=== PATIENT | female | born 1980 | race Caucasian/White ===

== ENCOUNTER 2017-10-11 19:50 | Outpatient (CLI) | payer OTHER ==
[~2017-10-11] VITALS: Ht 170.2 cm; Wt 97.0 kg
[~2017-10-11 19:50] MED LIST: LEVO100T35 PO
[2017-10-11 20:40] VITALS: Ht 170.2 cm; Wt 97.0 kg
== END 2017-10-11 20:58 | disposition home or self-care (01) ==
LOC: C.LD 19:50 → C.OPB 19:50
PROVIDERS: ATTEND Obstetrics & Gynecology
DX: O36.8190 Decreased fetal movements, unspecified trimester, not applicable or unspecified (principal); Z3A.00 Weeks of gestation of pregnancy not specified

== ENCOUNTER 2017-12-02 05:17 | Inpatient (IN) | payer OTHER ==
--- NOTE | 2017-11-25 12:58 | PAT Medication Instructions ---
Service Date Nov 25, 2017. Current Home Medication List Albuterol Sulfate (Proair Respiclick), 2 PUFF INH Q4 PRN for SOB/Wheezing Ferrous Sulfate (Iron), 1 TAB PO BID Levothyroxine Sodium (Levothyroxine Sodium), 1 TAB PO QAM Multivit/Min/Iron/Fol Ac/Pren ( Vitamin), 1 TAB PO QAM Medication Instructions For Your Scheduled Surgery - Hold the following medications the morning of surgery: Multivit/Min/Iron/Fol Ac/Pren ( Vitamin), 1 TAB PO QAM Ferrous Sulfate (Iron), 1 TAB PO BID - Take the following medications the morning of surgery with a sip of water: Albuterol Sulfate (Proair Respiclick), 2 PUFF INH Q4 PRN for SOB/Wheezing (IF NEEDED, AND BRING IT WITH YOU TO THE HOSPITAL) Levothyroxine Sodium (Levothyroxine Sodium), 1 TAB PO QAM - Take the following medications as scheduled the night before surgery: Ferrous Sulfate (Iron), 1 TAB PO BID If you have any questions please call us at [phone] or [phone] or [phone]
[2017-11-25 15:12] LABS: BASO % 0.1 %; BASO ABS # 0.01 K/uL (0-0.2); EOS % 0.8 %; EOS ABS # 0.07 K/uL (0-0.5); HEMATOCRIT 34.8 % (37-47); HEMOGLOBIN 11.8 g/dL (12.0-16.0); IG# 0.04 K/uL (0.00-0.02); LYMPH % 20.7 %; LYMPH ABS # 1.73 K/uL (1.2-3.4); MEAN CELL VOLUME 95.6 fL (80-100); MEAN CORPUSCULAR HEMOGLOBIN 32.4 pg (25-34); MEAN CORPUSCULAR HGB CONC 33.9 g/dl (32-36); MEAN PLATELET VOLUME 10.2 fL (7.4-10.4); MONO % 5.5 %; MONO ABS # 0.46 K/uL (0.11-0.59); NEUT % 72.4 %; NEUT ABS # 6.05 K/uL (1.4-6.5); PLATELET COUNT 236 K/uL (130-400); RED CELL DISTRIBUTION WIDTH SD 49.3 fL (36.4-46.3); WHITE BLOOD COUNT 8.36 K/uL (4.8-10.8)
[2017-12-02] VITALS (15 sets, daily range): BP systolic 99–109; BP diastolic 58–65; PULSE 62–73; TEMP 36.4; O2SAT 99–100; Ht 170.2 cm; Wt 101.0 kg
[~2017-12-02] VITALS: Ht 170.2 cm; Wt 101.0 kg
[~2017-12-02 05:17] MED LIST changes: +ALBU18002 INH; +FERR1TAB61 PO; -LEVO100T35 PO; +LEVO50TA6 PO; +PRENTAB26 PO
[2017-12-02] MEDS: LACTATED RINGER'S 1000ML 1,000 ML IV SCH ×2 (05:45→06:38)
[2017-12-02 05:51] LABS: BASO % 0.4 %; BASO ABS # 0.03 K/uL (0-0.2); EOS % 1.4 %; EOS ABS # 0.11 K/uL (0-0.5); HEMATOCRIT 34.8 % (37-47); IG# 0.04 K/uL (0.00-0.02); LYMPH % 24.9 %; LYMPH ABS # 1.98 K/uL (1.2-3.4); MEAN CELL VOLUME 94.6 fL (80-100); MEAN CORPUSCULAR HEMOGLOBIN 32.6 pg (25-34); MONO % 6.5 %; MONO ABS # 0.52 K/uL (0.11-0.59); NEUT % 66.3 %; NEUT ABS # 5.26 K/uL (1.4-6.5); PLATELET COUNT 222 K/uL (130-400); RED CELL DISTRIBUTION WIDTH CV 14.1 % (11.5-14.5); RED CELL DISTRIBUTION WIDTH SD 48.2 fL (36.4-46.3); WHITE BLOOD COUNT 7.94 K/uL (4.8-10.8)
[2017-12-02 05:53] LABS: MEAN CORPUSCULAR HGB CONC 34.5 g/dl (32-36)
[2017-12-02] MEDS ORDERED: CEFOXITIN IV 2,000 MG in DEXTROSE 5% 50ML 50 ML IV SCH (06:00)
[2017-12-02] MEDS ORDERED: CITRIC ACID/SODIUM CITRATE 15 ML UDC PO SCH (06:00)
[2017-12-02] MEDS ORDERED: PHENYLEPHRINE HCL INJ 10 MG/ML VIAL ONE (06:51)
[2017-12-02] MEDS ORDERED: OXYTOCIN INJ 10 UNITS/ML VIAL ONE ×2 (06:51→07:31)
[2017-12-02] MEDS ORDERED: MoRPHine SULFATE PF 1 MG/ML 10 ML AMP/VIAL ONE (06:52)
--- NOTE | 2017-12-02 07:03 | History & Physical Bridge Note ---
H&P Re-Evaluation Bridge Note: I have examined the patient, reviewed the History & Physical and in the interval since the performance of the History & Physical I have noted the following changes of clinical significance: No changes noted
[2017-12-02] MEDS ORDERED: FENTANYL CITRATE INJ 50 MCG/1 ML 2 ML VIAL ONE (07:26)
[2017-12-02] MEDS ORDERED: ONDANSETRON INJ 2 MG/ML 2 ML VIAL ONE (08:17)
[2017-12-02] MEDS ORDERED: LACTATED RINGER'S 1000ML 1,000 ML IV SCH (08:46)
--- NOTE | 2017-12-02 08:50 | [facility] Post Operative Brief Note ---
Immediate Operative Summary Operative Date Dec 02, 2017. Pre-Operative Diagnosis Term with history of prior Caesarean Section, requesting permanent sterilization Post-Operative Diagnosis same Procedure(s) Performed Repeat Section; Delivery of a live female child at 0803 Bilateral Tub[address] L[address] Surgeon [address] Wagner Product Development Chemist Surgeon(s) Dr. aPlmer Estimated Blood Loss 500cc Findings Consistent with Post-Op Diagnosis Fluids (cc crystalloids) 1100 Specimens Cord Blood Placenta-Exam Portion of right and left Fallopian tube Drains Akins to gravity Anesthesia Type Spinal Complication(s) none Disposition Accompanied Pt To Recover: yes Disposition: L&D
[2017-12-02] MEDS ORDERED: SODIUM CHLORIDE 0.9% 1000ML 1,000 ML IV PRN (08:59)
[2017-12-02] MEDS ORDERED: NALOXONE HCL INJ 1 MG in SODIUM CHLORIDE 0.9% 1000ML 1,000 ML IV PRN (08:59)
[2017-12-02] MEDS ORDERED: NALOXONE HCL INJ 0.08 MG in SYRINGE 1.8 ML IV PRN (08:59)
[2017-12-02] MEDS ORDERED: LACTATED RINGER'S 1000ML 500 ML IV PRN (08:59)
--- NOTE | 2017-12-02 08:59 | Anesthesiology Progress Note ---
Anesthesia Post Op Note Date & Time Dec 02, 2017 at 08:59 Notes Mental Status: alert / awake / arousable, participated in evaluation Pt Amnestic to Procedure: Yes Nausea / Vomiting: adequately controlled Pain: adequately controlled Airway Patency, RR, SpO2: stable & adequate BP & HR: stable & adequate Hydration State: stable & adequate Neuraxial Anesthesia: was administered, sensory block is resolving Anesthetic Complications: no major complications apparent
[2017-12-02] MEDS ORDERED: NALBUPHINE HCL INJ 10 MG/ML AMP IV PRN (09:00)
[2017-12-02] MEDS ORDERED: SUPERCREAM 0.870 % 15GM JAR EXT PRN (09:00)
[2017-12-02] MEDS: SIMETHICONE 80 MG CHEW PO SCH ×4 (09:00→19:57)
[2017-12-02] MEDS ORDERED: NALOXONE HCL 0.4 MG/1 ML VIAL/CARP IV PRN (09:00)
[2017-12-02] MEDS ORDERED: EpHEDrine SULFATE INJ 50 MG/ML AMP IV PRN (09:00)
[2017-12-02] MEDS ORDERED: MoRPHine SULFATE 2 MG/ML CARP IV PRN (09:00)
[2017-12-02] MEDS ORDERED: NO NARCOTICS OR SEDATIVES SCH (09:00)
[2017-12-02] MEDS ORDERED: SENNA 8.6 MG TAB PO PRN (09:00)
[2017-12-02] MEDS ORDERED: DIPHTHERIA/TETANUS/PERTUSSIS 0.5 ML SYR/VIAL IM. ONE (09:00)
[2017-12-02] MEDS ORDERED: HYDROCORTISONE ACETATE 25 MG SUPP PR PRN (09:00)
[2017-12-02] MEDS ORDERED: MAGNESIUM HYDROXIDE SUSP 30 ML UDC PO PRN (09:00)
[2017-12-02] MEDS ORDERED: BENZOCAINE 20% AER SPR 82.5 GM CAN EXT PRN (09:00)
[2017-12-02] MEDS ORDERED: MoRPHine SULFATE PF 1 MG/ML 10 ML AMP/VIAL IT PRN (09:00)
[2017-12-02] MEDS ORDERED: ONDANSETRON INJ 2 MG/ML 2 ML VIAL IV PRN (09:00)
[2017-12-02] MEDS ORDERED: LANOLIN OINT EXT PRN (09:00)
[2017-12-02] MEDS ORDERED: ALBUTEROL HFA 8 GM INHALER INH PRN (09:45)
--- NOTE | 2017-12-02 09:51 | OPERATIVE REPORT ---
DATE OF OPERATION: 12/02/2017 PREOPERATIVE DIAGNOSES: 1. Intrauterine at 39 weeks and 4 days gestation. 2. History of prior section. 3. Requesting permanent sterilization. POSTOPERATIVE DIAGNOSES: Same. OPERATIVE PROCEDURE: Repeat low transverse section with bilateral tubal ligation. SURGEON: Dr. Wagner. RESIDENTIAL MONITOR: Dr. Palmer. ANESTHESIA: Spinal. ESTIMATED BLOOD LOSS: 500 mL IV FLUIDS: 1100 mL crystalloid. URINE OUTPUT: 200 mL clear yellow urine. SPECIMENS: Cord blood, placenta to pathology, portion of left and right fallopian tubes. DRAINS: Akins to gravity. COMPLICATIONS: None. DISPOSITION: To labor and delivery. OPERATIVE FINDINGS: The patient delivered a viable female in the vertex position via repeat low transverse section at 8:03 a.m. on 12/02/2017. Apgars were 9 at 1 minute, 10 at 5 minutes, weighing 6 pounds 12 ounces. Please see switch inspector's notes for further baby assessment. Cord blood was then obtained. An intact placenta with 3-vessel cord was delivered at 8:04 a.m. and sent to pathology. Grossly normal uterus and bilateral tubes and ovaries noted. Bilateral tubal ligation was performed via [place] technique. Tubal segments were sent to pathology. Both the patient and baby tolerated the surgery well and were sent to recovery with stable vital signs. OPERATIVE PROCEDURE IN DETAIL: The patient was taken to the operating room where spinal anesthesia was administered. She was immediately placed in dorsal supine position with a left lateral tilt and prepped and draped in a manner appropriate for the procedure. Once the anesthesia was found to be adequate, a Pfannenstiel skin incision was made over the previous surgical scar and was carried down through to a tear layer of the rectus fascia. Fascia was nicked in the midline and extended bilaterally with curved Kelly scissors. The superior aspect of the fascial incision was grasped with Carlos A clamps, elevated, and rectus muscles were dissected off with the use of the curved Kelly scissors and electrocautery. Likewise, the inferior aspect of the fascial incision was grasped with Carlos A clamps, elevated, and rectus muscles were dissected off with the use of the curved Kelly scissors. Rectus muscles were in midline and the peritoneum was entered with Metzenbaum scissors. Peritoneal incision was extended cephalocaudally with gentle traction. An Clark retractor was then placed within the abdomen. The vesicouterine peritoneum was then identified and a bladder flap was created with the Metzenbaum scissors and digital traction. The bladder flap was reincorporated beneath a bladder blade. A transverse incision was then made on the uterus and extended bilaterally with digital traction. head was identified and delivered through the incision along with the rest of the baby. Baby was bulb suctioned at delivery. Cord was clamped x2 and cut. Baby was immediately handed to an awaiting switch inspector for further evaluation and management, please see their notes for further baby assessment. Cord blood was then obtained. Intact placenta with 3-vessel cord was delivered through the incision and sent to pathology. The uterus was then exteriorized and wrapped in a moist laparotomy sponge. The uterus was cleared of any trailing membranes and debris with the laparotomy sponge. The uterine incision was then grasped with ring forceps at 4 quadrants and was closed with 0 Vicryl suture in a continuous locking fashion. A second layer of 0 Vicryl suture was used in an imbricating fashion to ensure hemostasis. Any residual bleeding was suture ligated with 0 Vicryl suture in a [id number] interrupted fashion. Attention was then directed toward the right fallopian tube which was followed out to its fimbriated end, grasped with a Adonay clamp at midpoint and was doubly suture ligated with 0 chromic suture via [place] technique. The tubal segment was then removed with Metzenbaum scissors. The tubal stumps were then cauterized with electrocautery. Right tubal segment was sent to pathology. Excellent hemostasis was noted at the tubal ligation site. Attention was then directed toward the left fallopian tube which was followed out to its fimbriated end, grasped at the midpoint with a [place] clamp and was double suture ligated with 0 chromic suture via Yessi technique. The tubal segment was then removed with Metzenbaum scissors and sent to pathology. The tubal stumps were then cauterized with electrocautery. Excellent hemostasis was noted bilaterally. The posterior cul-de-sac was then irrigated with warm saline solution. The uterus was then placed back within its normal anatomic position within the abdomen. The anterior cul-de-sac was then irrigated with warm saline solution. The bladder flap was reapproximated to the lower uterine segment with 3-0 Vicryl suture in a continuous running fashion. Any residual bleeding was made hemostatic with Khloe. Again, excellent hemostasis was noted at the uterine incision. At this point, all instruments were then removed from the abdomen. The Clark retractor was then removed from the abdomen. The peritoneum was then grasped with Radha clamps and was closed with 2-0 Vicryl suture in continuous running fashion. Rectus fascia was then closed with 0 Vicryl suture in continuous running fashion. Subcutaneous tissue was reapproximated with 2-0 Vicryl suture in an interrupted fashion. Skin was then closed with ana. Excellent hemostasis was noted through all tissue layers. All sponge and instrument counts were found to be correct x2. Both patient and baby tolerated the surgery well and were sent to recovery with stable vital signs. I attest to the content of the Intraoperative Record and any orders documented therein. Any exceptions are noted below. MTDD
[2017-12-02] MEDS: OXYTOCIN INJ 30 UNITS in LACTATED RINGER'S 1000ML 1,000 ML IV SCH ×2 (09:52→19:57)
[2017-12-02] MEDS: DiphenhydrAMINE HCL 50 MG/ML VIAL IV PRN (10:55)
[2017-12-02] MEDS: KETOROLAC TROMETHAMINE 30 MG/ML VIAL IV. PRN (12:39)
[2017-12-02] MEDS: NICOTINE 14 MG/24 HR TDSY TD SCH (12:42)
[2017-12-02] MEDS: DOCUSATE SODIUM 100 MG CAP PO SCH (19:58)
[2017-12-03] VITALS (7 sets, daily range): BP systolic 95–110; BP diastolic 58–66; PULSE 62–79; TEMP 36.4–36.9; O2SAT 95–99
[2017-12-03] MEDS: DiphenhydrAMINE HCL 50 MG/ML VIAL IV PRN (00:31)
[2017-12-03] MEDS: KETOROLAC TROMETHAMINE 30 MG/ML VIAL IV. PRN (00:31)
[2017-12-03] MEDS ORDERED: DC INTRASPINAL MORPHINE SCH (01:45)
[2017-12-03] MEDS ORDERED: ONDANSETRON INJ 2 MG/ML 2 ML VIAL IV PRN (01:45)
[2017-12-03] MEDS ORDERED: OXYCODONE/ACETAMINOPHEN 5-325 TAB PO PRN (01:45)
[2017-12-03] MEDS ORDERED: KETOROLAC TROMETHAMINE 30 MG/ML VIAL IV. PRN (01:46)
[2017-12-03 07:22] LABS: BASO % 0.2 %; BASO ABS # 0.02 K/uL (0-0.2); EOS % 1.4 %; EOS ABS # 0.13 K/uL (0-0.5); HEMATOCRIT 30.1 % (37-47); HEMOGLOBIN 10.3 g/dL (12.0-16.0); IG# 0.03 K/uL (0.00-0.02); LYMPH % 19.9 %; LYMPH ABS # 1.89 K/uL (1.2-3.4); MEAN CELL VOLUME 94.1 fL (80-100); MEAN CORPUSCULAR HEMOGLOBIN 32.2 pg (25-34); MEAN CORPUSCULAR HGB CONC 34.2 g/dl (32-36); MEAN PLATELET VOLUME 9.8 fL (7.4-10.4); MONO ABS # 0.76 K/uL (0.11-0.59); NEUT % 70.2 %; NEUT ABS # 6.69 K/uL (1.4-6.5); PLATELET COUNT 196 K/uL (130-400); RED CELL DISTRIBUTION WIDTH SD 48.4 fL (36.4-46.3); WHITE BLOOD COUNT 9.52 K/uL (4.8-10.8)
[2017-12-03] MEDS: SIMETHICONE 80 MG CHEW PO SCH ×4 (08:08→19:30)
[2017-12-03] MEDS: PRENATAL VITAMIN TAB PO SCH (08:09)
[2017-12-03] MEDS: DOCUSATE SODIUM 100 MG CAP PO SCH ×2 (08:09→19:30)
[2017-12-03] MEDS: LEVOTHYROXINE 50 MCG TAB PO SCH (08:09)
[2017-12-03] MEDS: FERROUS SULFATE 325 MG TAB PO SCH (08:20)
--- NOTE | 2017-12-03 08:34 | OB/GYN Progress Note ---
RUBBER VULCANIZING MACHINE OPERATOR Progress Note Date of Service: Dec 03, 2017. Patient is seen and examined. She feels well, no complaints. Pain is under control with oral meds. Ambulating without dizziness Voiding without difficulty Tolerating diet with out N&V Flatus NEG BM NEG Bleeding is minimal No fever/ chills/ CP/ SOB/ N&V/ Leg pain Breast and bottle feeding without problems Date Time Temp Pulse Resp B/P (MAP) Pulse Ox O2 Delivery O2 Flow Rate FiO2 12/03/17 03:10 36.6 67 18 95/59 (71) Room Air 12/03/17 01:15 16 96 12/03/17 00:15 18 99 12/03/17 00:05 36.9 70 16 97/58 (71) 99 Room Air 12/03/17 00:05 99 Room Air 12/02/17 23:15 18 99 12/02/17 22:15 18 99 12/02/17 21:15 18 99 12/02/17 20:15 18 100 12/02/17 19:50 36.4 73 18 99/63 (75) 100 Room Air 12/02/17 19:15 18 99 12/02/17 18:05 20 99 12/02/17 17:05 18 100 12/02/17 16:30 18 100 12/02/17 15:40 99 Room Air 12/02/17 15:40 36.4 66 18 101/65 (77) 99 Room Air 12/02/17 15:30 20 99 12/02/17 14:20 20 99 12/02/17 13:20 20 100 12/02/17 12:30 20 100 12/02/17 11:20 18 100 12/02/17 11:20 36.4 62 18 109/58 (75) 100 Room Air 12/02/17 11:20 100 Room Air PE: General: Alert, orientedx3, NAD CVS: S1S2 RRR Lungs; CTAB Abd: soft, NT, ND, BS+, fundus firm, below Umbilicus Dressing: Clean, dry, intact Perineum intact, Lochia rubra minimal Ext; NT, no edema AP: 37 yo s/p C Section, pod# 1 VSS Afebrile doing well Continue routine postop care Encourage ambulation, PO intake All questions were answered
[2017-12-03] MEDS: NICOTINE 14 MG/24 HR TDSY TD SCH (10:05)
[2017-12-03] MEDS: IBUPROFEN 600 MG TAB PO PRN ×3 (10:11→21:38)
[2017-12-03] MEDS: OXYCODONE/ACETAMINOPHEN 5-325 TAB PO PRN (21:38)
[2017-12-03] MEDS ORDERED: BISACODYL 5 MG TABEC PO ONE (22:00)
[2017-12-04] MEDS: IBUPROFEN 600 MG TAB PO PRN ×2 (04:37→09:57)
[2017-12-04] MEDS: OXYCODONE/ACETAMINOPHEN 5-325 TAB PO PRN ×2 (04:37→09:57)
[2017-12-04 06:18] LABS: HEMATOCRIT 28.9 % (37-47); HEMOGLOBIN 9.8 g/dL (12.0-16.0)
[2017-12-04] MEDS ORDERED: BISACODYL 10 MG SUPP PR PRN (07:00)
[2017-12-04] MEDS: LEVOTHYROXINE 50 MCG TAB PO SCH (07:19)
[2017-12-04 07:44] VITALS: BP 106/69; PULSE 56; TEMP 36.8; O2SAT 98
[2017-12-04] MEDS: SIMETHICONE 80 MG CHEW PO SCH ×2 (08:26→12:21)
[2017-12-04] MEDS: PRENATAL VITAMIN TAB PO SCH (08:26)
[2017-12-04] MEDS: DOCUSATE SODIUM 100 MG CAP PO SCH (08:26)
[2017-12-04] MEDS: FERROUS SULFATE 325 MG TAB PO SCH (08:26)
[2017-12-04] MEDS ORDERED: NICOTINE 14 MG/24 HR TDSY TD SCH (09:15)
--- NOTE | 2017-12-04 10:13 | Surgery Progress Note ---
Surgery Progress Note Date of Service Dec 04, 2017. Subjective Post OP Day: 2 + feeling well (+ve ), + ambulating (+ve ), + pain controlled (+ve ), + diet ( [place] PO food and meds), No complaints, No chest pain, No SOB, No bowel movement, No flatus (+ve ), No using THEORETICAL PHYSICIST, No vomiting Objective Vital Signs: Date Time Temp Pulse Resp B/P (MAP) Pulse Ox O2 Delivery O2 Flow Rate FiO2 12/04/17 07:44 36.8 56 16 106/69 (81) 98 Room Air 12/03/17 23:45 Room Air 12/03/17 23:45 36.5 79 18 100/64 (76) Room Air 12/03/17 15:30 Room Air 12/03/17 15:30 36.9 73 20 110/66 (81) Room Air General Appearance: WD/WN, no apparent distress Head: normocephalic, atraumatic Neck: supple, no adenopathy, thyroid normal, no JVD, no carotid bruits, trachea midline Respiratory/Chest: chest non-tender, lungs clear, normal breath sounds, no respiratory distress, no accessory muscle use Cardiovascular: regular rate, rhythm, no edema, no gallop, no JVD, no murmur Abdomen: normal bowel sounds, non tender, non distended, soft, no organomegaly , no pulsatile mass Incision(s): clean, dry, intact, no erythema, no drainage Extremities: normal range of motion, non-tender, normal inspection, no pedal edema, no calf tenderness, normal capillary refill, pelvis stable Laboratory Results: Results Past 24 Hours Test 12/04/17 06:07 Range/Units Hemoglobin 9.8 12.0-16.0 g/dL Hematocrit 28.9 37-47 % Assessment & Plan c/sec day #2 pt doing well wishes to g home disch home with instructions
[2017-12-04] MEDS ORDERED: MTR600X PO (10:16)
[2017-12-04] MEDS ORDERED: OXYC-57 PO (10:16)
[2017-12-04] MEDS ORDERED: CLC100 PO (10:16)
[2017-12-04] MEDS ORDERED: FERR1TAB61 PO (10:16)
--- NOTE | 2017-12-04 10:17 | Discharge Instructions ---
Discharge Instructions Date of Service Dec 04, 2017. Admission Reason for Admission: Previous Section, Desires Sterilization Discharge Discharge Diagnosis / Problem: postop Discharge Goals Goal(s): Routine recovery after Activity Recommendations Activity Limitations: as noted below ACTIVITY RECOMMENDATIONS: * Gradual return to full activity over the next 2-3 weeks. * No lifting - nothing heavier than baby over the next 2-3 weeks. * Do not engage in vigorous exercise, sexual activity or sports until cleared by your physician. * Do not drive or operate any motorized equipment until cleared by your physician. * You may shower/bathe daily. BREAST CARE: If you are not breast feeding: * Wear a supportive bra 24 hours a day for one to two weeks. * Avoid stimulating your breasts and nipples as much as possible during the first few weeks after delivery. * When taking a shower, have the warm water hit your back, not breasts. * When your breasts feel full, apply ice packs. Usually three to four times a day helps ease the discomfort. * Take a mild pain medication (Tylenol/Motrin) when you are uncomfortable. If breast feeding: * Use breast milk to lubricate nipples. Lansinoh cream may be used for sore nipples. You do not need to remove cream prior to breast feeding. If using a different brand of cream, check the label for directions regarding removal of cream prior to nursing. * Wear a supportive bra. * If having problems with breasts or breast feeding, call a travel sales consultant or your health care provider. OVER THE COUNTER MEDICATION: * For discomfort or pain, you may use Acetaminophen (Tylenol), Ibuprofen (Advil ), or Naproxen (Aleve) following the package directions. * For constipation you may use Colace following the package directions. SPECIAL CARE INSTRUCTIONS: When you are discharged from the hospital, it is important for you to follow the instructions listed below: * During the first week at home, you should be able to care for yourself and your baby. In addition, the usual light household activities are encouraged. * Limit your activities to the way you feel. Do not try to clean the house or move furniture. Be sensible. * If you actively engage in sports and have done so up until the time of your delivery, you may resume these activities as soon as you feel able. This may take up to one month or even longer. Use good judgment. * Continue to take your vitamins for at least six weeks after the of your baby. * Your diet need not be limited unless you were on a special diet before your delivery. Breast-feeding mothers need around 2500 calories per day and at least 64-80 ounces of fluid per day (8 to 10 glasses). * You should eat foods from the four major food groups. Crash diets or fad diets are to be avoided. Eating lean meats, fresh fruits and vegetables, low-fat dairy products, high fiber foods and a regular exercise program, will help you get back to your pre- weight without putting your health at risk. * Constipation is sometimes a problem after delivery. Take a mild laxative as needed. If breast feeding, Milk of Magnesia is acceptable to use. You may use a suppository or Fleets enema if no episiotomy. * A daily shower or tub bath is suggested. Be sure to thoroughly and gently dry the perineum. * A bloody vaginal discharge will usually continue until around four weeks post . A small amount of bleeding may continue for as long as six weeks. Vaginal discharge changes from the bright red bleeding after delivery to pink then brownish and finally yellowish-pink before becoming white and disappearing. * Bleeding may increase with activity. Your first period may come in 4-8 weeks. If you are breast feeding, your period may be delayed even longer. * [place] (sex) can begin whenever both you and your partner feel comfortable and do not have any form of genital infection. It is recommended that you wait at least six weeks for internal and external healing to occur. If you have questions, please talk to your health care practitioner. A condom should be used to prevent infection and . * Foreplay, gentle intercourse and lubrication is very important the first several times to prevent pain. A water-based lubricant such as K-Y jelly or Astroglide may be used. * Tampons and/or Douching should be avoided until after six weeks check-up. * If you have RH negative blood and your baby is RH positive, you will receive RHOGAM by injection prior to discharge. The nurse will give you a card to keep with you that has the date and place that you received RHOGAM after delivery. * During your care, you had a Rubella screen done to check for the presence of rubella antibodies in your blood. If your test was negative, you will receive a Rubella vaccine prior to discharge. This vaccine may cause a fever, soreness at the injection site and flu-like symptoms. If these symptoms persist, notify your health care practitioner. is not advised for three months after a Rubella vaccine. * Verbalizes understanding of car seat law as reviewed with patient nursing. * Car Seat hand-out given and reviewed with patient by nursing. * Shaken baby information reviewed with patient by nursing. Call you doctor if: * Heavy bleeding (saturating several pads an hour) or passing clots the size of your fist. * A fever >101 degrees F (38.3 degrees C) on two occasions four hours apart and /or chills. * Unusual pain in the pelvic or vaginal areas. Pain should improve each day . * Call the doctor for any increased redness, drainage or swelling around the incision and any pain unrelieved by prescribed pain medication. * Any signs or symptoms of phlebitis (possible blood clots forming in the veins ): leg pain, warm, red or swollen area on leg. * "Baby Blues" lasting longer than two weeks. If you have any questions or concerns, call your health care practitioner at . FOLLOW-UP VISIT: * Incision check (staple removal) in 1 week. Please call doctor's office at to set up appointment. * Please call the office at to schedule a 6 week examination. It is important you keep this appointment. * It is important for you to make arrangements for either yearly or twice yearly check-ups thereafter. . Current Hospital Diet Patient's current hospital diet: Regular OB Diet Discharge Diet Recommended Diet: Regular Diet Procedures Procedures Performed: Repeat Section; Delivery of a live female child at 0803 Bilateral Tubal Ligation Pending Studies Studies pending at discharge: no Medical Emergencies . Who to Call and When: Medical Emergencies: If at any time you feel your situation is an emergency, please call [phone] immediately. . Non-Emergent Contact Non-Emergency issues call your: Specialist . . "Provider Documentation" section prepared by Flex Sanabria. . VTE Core Measure Inpt VTE Proph given/why not?: Treatment not indicated
[2017-12-04] MEDS ORDERED: MISC-836 (10:22)
[2017-12-04 12:30] VITALS: BP_DIAS 69; PULSE 56; TEMP 36.8
== END 2017-12-04 12:35 | disposition home or self-care (01) | DRG 766 ==
LOC: C.LD 05:17 → C.OBG 11:16 → EDSTATUS 13:00
PROVIDERS: ADMIT Obstetrics & Gynecology; ATTEND Obstetrics & Gynecology
PROC: 10D00Z1 Extraction of Products of Conception, Low, Open Approach (ICD-10-PCS; principal; 2017-12-02 07:30)
PROC: 0UL77ZZ Occlusion of Bilateral Fallopian Tubes, Via Natural or Artificial Opening (ICD-10-PCS; principal; 2017-12-02 07:30)
DX: O34.219 Maternal care for unspecified type scar from previous cesarean delivery (principal); O09.523 Supervision of elderly multigravida, third trimester; Z30.2 Encounter for sterilization; Z37.0 Single live birth; Z3A.39 39 weeks gestation of pregnancy

== ENCOUNTER 2021-12-17 20:38 | Inpatient (IN) ==
[2021-12-17] MEDS ORDERED: SODIUM CHLORIDE 0.9% 1000ML 1,000 ML IV STA (21:15)
[2021-12-17] MEDS ORDERED: KETOROLAC TROMETHAMINE 15 MG/ML VIAL IV STA (21:15)
[2021-12-17] MEDS ORDERED: ONDANSETRON INJ 2 MG/ML 2 ML VIAL IV STA (21:15)
--- NOTE | 2021-12-17 21:19 | Emergency Department Note ---
Impression & Plan LUQ abdominal pain, Acute pancreatitis, Hematuria, Hypokalemia ED Provider Note NAME: BIPIN GONZALEZ AGE: 41 SEX: F : 1980 ARRIVES VIA: Walk-In INFORMANT: [Patient] ED PROVIDER(S): [Rubio Pierce MD] CHIEF COMPLAINT: Abdominal pain HISTORY OF PRESENT ILLNESS: The patient is a 41-year-old female presents with 2 days of diffuse abdominal pain. The pain has been a 6/10. The pain is constant. Eating does not make things any worse. She has had no nausea or vomiting. No fever, chills, cough or congestion. She has had no urinary complaints or vaginal complaints. No diarrhea or constipation. The patient was recently treated for a potential UTI although, her doctor called her care home through the antibiotic course and told her she could stop. She has no history of abdominal surgeries. No history of kidney stone or diverticulitis. REVIEW OF SYSTEMS: See HPI for pertinent positives and negatives. A total of ten systems were reviewed and were otherwise negative. PMHx/PSHx: See Below SOCIAL HISTORY: See Below. PHYSICAL EXAM: GENERAL: Patient is in no acute distress. HEENT: No acute trauma, normocephalic atraumatic, mucous membranes moist, no nasal congestion, no scleral icterus. NECK: No stridor, no adenopathy, no meningismus, trachea is midline. LUNGS: Clear to auscultation bilaterally, no wheeze, no rhonchi, breath sounds equal. HEART: Subtle systolic murmur, regular rate and rhythm. ABDOMEN: Soft, moderately tender in the left upper quadrant, bowel sounds positive, no hernias, no peritonitis. EXTREMITIES: No cyanosis or edema, full range of motion of all the joints without pain or difficulty, no signs for acute trauma. NEUROLOGIC: Oriented x 3, no acute motor or sensory deficits, no focal weakness. SKIN: No rash, no jaundice, no diaphoresis. Back: No flank discomfort to percussion. DIFFERENTIAL DIAGNOSIS: Appendicitis, ovarian cyst, ovarian torsion, ectopic , TOA, PID, diverticulitis, UTI, obstruction, mesenteric ischemia, aortic pathology, inflammatory bowel disease, renal colic, PUD, pancreatitis, biliary pathology, hernia, volvulus, constipation, as well as other pathologies. EMERGENCY DEPARTMENT COURSE/PROCEDURES: MEDICAL DECISION MAKING: There is no leukocytosis or concerning anemia. There is a normal platelet count. Potassium is a bit low at 3.4. No kidney failure. No concerning liver enzyme elevation. Lipase is quite high at over 700, more than 7 times normal. testing is negative. Urinalysis shows hematuria, no obvious infection--a urine culture is pending. Abdominal and pelvis CT is currently pending. On exam, the patient was tender in the left upper quadrant. She was not febrile or toxic. The patient received IV saline, 1 L. She was given IV Zofran and IV Toradol. The patient has acute pancreatitis. The finding of pancreatitis certainly explains her pain. The cause for the pancreatitis is unclear. Hospitalization though is warranted. I spoke with the patient and case management. The on-call hospitalist was consulted. Past Med/Surg History Medical History Eczema Thyroid condition Surgical History No significant past surgical history Social History Smoking Status: Current every day smoker Tobacco Type: Cigarettes Preferred Language: Bulgarian Feels Safe at Home: Yes Allergies Allergies Allergy/AdvReac Type Severity Reaction Status Date / Time Penicillins Allergy Unknown Rash Verified 12/17/21 21:11 Home Meds Home Medications Medication Instructions Recorded Confirmed levothyroxine 75 mcg tablet 75 mcg PO QAM 08/03/20 12/17/21 Results & Data (ED) Vital Signs Vital Signs - 24 hr 12/17/21 20:48 12/17/21 21:20 12/17/21 22:04 Temperature 36.7 C Temperature Source Temporal Artery Scan Pulse Rate 70 Pulse Rate [Right Finger] 70 65 Respiratory Rate 20 20 20 Blood Pressure 119/67 Blood Pressure [Right Arm] 141/58 H 124/66 Blood Pressure Mean 84 Blood Pressure Mean [Right Arm] 85 85 Pulse Oximetry 98 98 98 Oxygen Delivery Method Room Air Room Air Room Air Sepsis Recent Fever Within 48 Hours No Sepsis New/Unexplained Change in Mental Status N/A Sepsis Action Taken by Nursing No Action Required Home Medications Current Medication List: was personally reviewed by me Laboratory Data Attestation: I reviewed the patient's lab results. Result diagrams: 12/17/21 21:47 12/17/21 21:47 Lab Results 12/17/21 12/17/21 12/17/21 Range/Units 21:47 21:47 21:47 WBC 9.38 (4.8-10.8) K/uL RBC 4.05 L (4.2-5.4) M/uL Hgb 13.1 (12.0-16.0) g/dL Hct 38.7 (37-47) % MCV 95.6 (80-100) fL MCH 32.3 (25-34) pg MCHC 33.9 (32-36) g/dL RDW Std Deviation 46.5 H (36.4-46.3) fL RDW Coeff of Valeriy 13.3 (11.5-14.5) % Plt Count 290 (130-400) K/uL MPV 9.6 (7.4-10.4) fL Immature Gran % (Auto) 0.1 % Neut % (Auto) 65.9 % Lymph % (Auto) 24.2 % Barton % (Auto) 7.9 % Eos % (Auto) 1.7 % Baso % (Auto) 0.2 % Neut # (Auto) 6.18 (1.4-6.5) K/uL Lymph # (Auto) 2.27 (1.2-3.4) K/uL Barton # (Auto) 0.74 H (0.11-0.59) K/uL Eos # (Auto) 0.16 (0-0.5) K/uL Baso # (Auto) 0.02 (0-0.2) K/uL Immature Gran # (Auto) 0.01 (0.00-0.02) K/uL Sodium 137 (136-145) mmol/L Potassium 3.4 L (3.5-5.1) mmol/L Chloride 105 (98-107) mmol/L Carbon Dioxide 25 (21-32) mmol/L Anion Gap 7 (3-11) BUN 7 (6-23) mg/dl Creatinine 0.52 L (0.6-1.2) mg/dl Est Cr Clr Drug Dosing 176.8 ml/min Est GFR ( Amer) 137.5 ml/min Est GFR (Non-Af Amer) 118.7 ml/min BUN/Creatinine Ratio 13.5 (10-20) Glucose 93 (70-99(Fasting)) mg/dl Calcium 8.8 (8.5-10.1) mg/dl Total Bilirubin 0.3 (0.2-1.0) mg/dl AST 12 L (13-39) U/L ALT 9 (7-52) U/L Alkaline Phosphatase 75 (34-104) U/L Total Protein 6.7 (6.0-8.3) gm/dl Albumin 3.8 (3.4-5.0) gm/dl Globulin 2.9 (2.5-4.0) gm/dl Albumin/Globulin Ratio 1.3 (0.9-2) Lipase 778 H (11-82) U/L HCG, Qual Negative (Negative) Urine Color Urine Appearance (Clear) Urine pH (4.5-7.5) Ur Specific [place] (1.000-1.030) Urine Protein (Negative) Urine Glucose (UA) (Negative) Urine Ketones (Negative) Urine Blood (Negative) Urine Nitrite (Negative) Urine Bilirubin (Negative) Urine Urobilinogen (Negative) Ur Leukocyte Esterase (Negative) Urine WBC (Auto) (0-5) /hpf Urine RBC (Auto) (0-4) /hpf U Hyaline Cast (Auto) (0-5) /lpf U Epithel Cells (Auto) (0-5) /lpf Urine Bacteria (Auto) (Negative) Ur Renal Epithelial Cell (0-5) /lpf Urine Yeast 12/17/21 Range/Units 21:56 WBC (4.8-10.8) K/uL RBC (4.2-5.4) M/uL Hgb (12.0-16.0) g/dL Hct (37-47) % MCV (80-100) fL MCH (25-34) pg MCHC (32-36) g/dL RDW Std Deviation (36.4-46.3) fL RDW Coeff of Valeriy (11.5-14.5) % Plt Count (130-400) K/uL MPV (7.4-10.4) fL Immature Gran % (Auto) % Neut % (Auto) % Lymph % (Auto) % Barton % (Auto) % Eos % (Auto) % Baso % (Auto) % Neut # (Auto) (1.4-6.5) K/uL Lymph # (Auto) (1.2-3.4) K/uL Barton # (Auto) (0.11-0.59) K/uL Eos # (Auto) (0-0.5) K/uL Baso # (Auto) (0-0.2) K/uL Immature Gran # (Auto) (0.00-0.02) K/uL Sodium (136-145) mmol/L Potassium (3.5-5.1) mmol/L Chloride (98-107) mmol/L Carbon Dioxide (21-32) mmol/L Anion Gap (3-11) BUN (6-23) mg/dl Creatinine (0.6-1.2) mg/dl Est Cr Clr Drug Dosing ml/min Est GFR ( Amer) ml/min Est GFR (Non-Af Amer) ml/min BUN/Creatinine Ratio (10-20) Glucose (70-99(Fasting)) mg/dl Calcium (8.5-10.1) mg/dl Total Bilirubin (0.2-1.0) mg/dl AST (13-39) U/L ALT (7-52) U/L Alkaline Phosphatase (34-104) U/L Total Protein (6.0-8.3) gm/dl Albumin (3.4-5.0) gm/dl Globulin (2.5-4.0) gm/dl Albumin/Globulin Ratio (0.9-2) Lipase (11-82) U/L HCG, Qual (Negative) Urine Color Dark Yellow Urine Appearance Cloudy A (Clear) Urine pH 5.5 (4.5-7.5) Ur Specific [place] 1.033 H (1.000-1.030) Urine Protein 1+ H (Negative) Urine Glucose (UA) Negative (Negative) Urine Ketones Trace H (Negative) Urine Blood 3+ H (Negative) Urine Nitrite Negative (Negative) Urine Bilirubin Negative (Negative) Urine Urobilinogen Negative (Negative) Ur Leukocyte Esterase Trace H (Negative) Urine WBC (Auto) 10-30 H (0-5) /hpf Urine RBC (Auto) >30 H (0-4) /hpf U Hyaline Cast (Auto) 10-30 H (0-5) /lpf U Epithel Cells (Auto) >30 H (0-5) /lpf Urine Bacteria (Auto) 1+ H (Negative) Ur Renal Epithelial Cell 0-5 (0-5) /lpf Urine Yeast Not Reportable Administered Medications Discontinued Medications Sodium Chloride (Nss 1000ml) 1,000 mls @ 999 mls/hr IV .Q1H1M STA Stop: 12/17/21 22:15 Last Infusion: 12/17/21 23:58 Dose: 0 mls/hr Documented by: [id number] Admin: 12/17/21 21:51 Dose: 999 mls/hr Documented by: [id number] Ioversol (Optiray 320 100ml) 95 ml IV ONCE ONE Stop: 12/17/21 23:47 Last Admin: 12/17/21 23:47 Dose: 95 ml Documented by: [id number] Ketorolac Tromethamine (Ketorolac Tromethamine 15 Mg/Ml Vial) 15 mg IV NOW STA Stop: 12/17/21 21:16 Last Admin: 12/17/21 22:08 Dose: 15 mg Documented by: [id number] Ondansetron HCl (Ondansetron Inj 2 Mg/Ml 2 Ml Vial) 4 mg IV NOW STA Stop: 12/17/21 21:16 Last Admin: 12/17/21 22:05 Dose: 4 mg Documented by: [id number] Imaging Data Radiologist's Impression: Abdominal and pelvis CT with IV contrast: Pending. Discharge Plan Visit Data Chief Complaint: Abdominal Pain Stated Complaint: ABD PAIN ED Provider: Rubio Pierce Discharge Problem: LUQ abdominal pain, Acute pancreatitis, Hematuria, Hypokalemia Patient Disposition: Admitted As Inpatient Condition: Fair Forms Stand Alone Forms: Intermedia Prescriptions Prescriptions: No Action levothyroxine 75 mcg tablet 75 mcg PO QAM RF: 0 Referrals Referrals: PCP,NO [Primary Care Provider] - Discharge Problem: Acute pancreatitis Qualifiers: Pancreatitis type: unspecified pancreatitis type Acute pancreatitis complication: unspecified Qualified Code(s): K85.90 - Acute pancreatitis without necrosis or infection, unspecified Hematuria Qualifiers: Hematuria type: other microscopic Qualified Code(s): R31.29 - Other microscopic hematuria
[2021-12-17 22:02] LABS: Basophils # (auto) 0.02 K/uL (0-0.2); Basophils % (auto) 0.2 %; Eosinophils # (auto) 0.16 K/uL (0-0.5); Eosinophils % (auto) 1.7 %; Hematocrit (blood only) 38.7 % (37-47); Hemoglobin 13.1 g/dL (12.0-16.0); Immature Granulocytes # (auto) 0.01 K/uL (0.00-0.02); Immature Granulocytes % (auto) 0.1 %; Lymphocytes # (auto) 2.27 K/uL (1.2-3.4); Lymphocytes % (auto) 24.2 %; Mean Corpuscular Hemoglobin 32.3 pg (25-34); Mean Corpuscular Hgb Conc 33.9 g/dL (32-36); Mean Corpuscular Volume 95.6 fL (80-100); Mean Platelet Volume 9.6 fL (7.4-10.4); Monocytes # (auto) 0.74 K/uL (0.11-0.59); Monocytes % (auto) 7.9 %; Neutrophils # (auto) 6.18 K/uL (1.4-6.5); Neutrophils % (auto) 65.9 %; Platelet Count 290 K/uL (130-400); RDW Coefficient of Variation 13.3 % (11.5-14.5); RDW Standard Deviation 46.5 fL (36.4-46.3); Red Blood Count 4.05 M/uL (4.2-5.4); White Blood Count 9.38 K/uL (4.8-10.8)
[2021-12-17 22:09] LABS: Appearance Urine Cloudy (Clear); Bacteria Urine Automated 1+ (Negative); Bilirubin Urine Negative (Negative); Blood Urine 3+ (Negative); Color Urine Dark Yellow; Epithelial Cell Urine Auto >30 /lpf (0-5); Glucose Urine UA Negative (Negative); Ketones Urine Trace (Negative); Leukocyte Esterase Urine Trace (Negative); Nitrite Urine Negative (Negative); Protein Urine 1+ (Negative); Specific Gravity Urine 1.033 (1.000-1.030); Urobilinogen Urine Negative (Negative); pH Urine 5.5 (4.5-7.5)
[2021-12-17 22:22] LABS: RBC Urine Automated >30 /hpf (0-4)
[2021-12-17 22:23] LABS: Renal Epithelial Cells Urine 0-5 /lpf (0-5)
[2021-12-17 22:24] LABS: BUN Creatinine Ratio 13.5 (10-20); Calcium 8.8 mg/dl (8.5-10.1); Creatinine Clr Calc Pharmacy 176.8 ml/min; Est GFR (African American) 137.5 ml/min; Est GFR (Non-African American) 118.7 ml/min; Potassium 3.4 mmol/L (3.5-5.1); Pregnancy Test, Serum Negative (Negative)
[2021-12-17 22:35] LABS: Albumin Globulin Ratio 1.3 (0.9-2); Albumin Level 3.8 gm/dl (3.4-5.0); Bilirubin,Total 0.3 mg/dl (0.2-1.0); Globulin 2.9 gm/dl (2.5-4.0); Total Protein 6.7 gm/dl (6.0-8.3)
[2021-12-17] MEDS ORDERED: OPTIRAY 320 100ml IV ONE (23:46)
[2021-12-18] MEDS ORDERED: NICOTINE 21 MG/24 HR TDSY TD ONE (01:20)
[2021-12-18] MEDS: NICOTINE 21 MG/24 HR TDSY TD SCH ×2 (01:34→10:19)
[2021-12-18] MEDS ORDERED: POTASSIUM CHLORIDE CRTAB 20 MEQ TABCR PO STA (01:42)
[2021-12-18] MEDS: ACETAMINOPHEN 325 MG TAB PO PRN ×2 (01:56→06:21)
[2021-12-18] MEDS ORDERED: ONDANSETRON INJ 2 MG/ML 2 ML VIAL IV PRN (02:51)
[2021-12-18] MEDS: LACTATED RINGER'S 1,000 ML IV SCH ×4 (03:07→19:14)
[2021-12-18] MEDS: cefTRIAXone SODIUM 2,000 MG in DEXTROSE 5% 50 ML IV SCH (04:28)
[2021-12-18] MEDS: ENOXAPARIN INJ 40 MG/0.4 ML SYR SQ SCH ×2 (04:28→17:08)
[2021-12-18] MEDS: LEVOTHYROXINE SODIUM 75 MCG TABLET PO SCH (06:19)
--- NOTE | 2021-12-18 06:59 | CT Scan Report ---
ABDOMEN AND PELVIS CT WITH IV CONTRAST CT DOSE: 1268.90 mGy.cm HISTORY: Acute left lower quadrant abdominal pain with nausea luq abd pain TECHNIQUE: Multiaxial CT images of the abdomen and pelvis were performed following the IV administrat ion of 95 cc of Optiray, A dose lowering technique was utilized adhering to the principles of ALARA. COMPARISON STUDY: Pelvic ultrasound 04/01/2012 FINDINGS: The imaged inferior lung bases appear unremarkable. Calcified granuloma of the basal right lower lobe. Clear lung bases. No pneumatosis or pneumoperitoneum. Scattered calcifications are noted within the spleen. Unremarkable right adrenal gland, gallbladder and liver. There is patency of the h epatic and portal veins. There is a 1.9 x 1.4 cm left adrenal gland nodule with Hounsfield of 7 sugge stive of an adenoma. There is mild interstitial and peripancreatic edema involving the distal pancrea tic body and tail with edema and trace free fluid extending along the splenic flexure. No pancreatic ductal dilation, mass or stone. No pancreatic necrosis. Unremarkable kidneys. No hydronephrosis. Partial distention of the urinary bladder. The uterus and ad nexa are unremarkable. No abdominal aortic aneurysm. No adenopathy. No bowel obstruction or bowel wall thickening. Colonic diverticulosis. Normal appendix. Tiny fat fill ed periumbilical hernia. No acute fracture. Degenerative changes of the lower lumbar spine. IMPRESSION: 1. Mild acute interstitial edematous pancreatitis. 2. No bowel obstruction or bowel wall thickening. Normal appendix. 3. Mild colonic diverticulosis. ACT 112: Negative or not required by law. The above report was generated using voice recognition software. It may contain grammatical, syntax o r spelling errors. Electronically signed by: Luisito Bill M.D. 12/18/2021 6:58 AM
[2021-12-18 07:11] LABS: Basophils # (auto) 0.01 K/uL (0-0.2); Basophils % (auto) 0.1 %; Eosinophils # (auto) 0.08 K/uL (0-0.5); Hematocrit (blood only) 35.1 % (37-47); Hemoglobin 11.6 g/dL (12.0-16.0); Immature Granulocytes # (auto) 0.01 K/uL (0.00-0.02); Immature Granulocytes % (auto) 0.1 %; Lymphocytes # (auto) 1.59 K/uL (1.2-3.4); Lymphocytes % (auto) 20.8 %; Mean Corpuscular Hemoglobin 31.9 pg (25-34); Mean Corpuscular Volume 96.4 fL (80-100); Mean Platelet Volume 9.7 fL (7.4-10.4); Monocytes # (auto) 0.54 K/uL (0.11-0.59); Monocytes % (auto) 7.1 %; Neutrophils # (auto) 5.42 K/uL (1.4-6.5); Neutrophils % (auto) 70.9 %; Platelet Count 263 K/uL (130-400); RDW Coefficient of Variation 13.4 % (11.5-14.5); RDW Standard Deviation 47.9 fL (36.4-46.3); Red Blood Count 3.64 M/uL (4.2-5.4); White Blood Count 7.65 K/uL (4.8-10.8)
[2021-12-18 07:39] LABS: BUN Creatinine Ratio 8.7 (10-20); Calcium 8.4 mg/dl (8.5-10.1); Creatinine Clr Calc Pharmacy 200.7 ml/min; Est GFR (African American) 143.2 ml/min; Est GFR (Non-African American) 123.6 ml/min; Potassium 3.5 mmol/L (3.5-5.1)
--- NOTE | 2021-12-18 07:45 | History and Physical Report ---
DATE OF ADMISSION: 12/17/2021. CHIEF COMPLAINT: Abdominal pain. HISTORY OF PRESENT ILLNESS: This is a 41-year-old female with past medical history significant for hypothyroidism, polycystic ovaries, chronic rhinitis, tobacco use disorder. Presents with abdominal pain and found to have acute pancreatitis. The patient says the pain is going on for the last 2 to 3 days, 5/10 in severity, no radiation. The pain is worst in the epigastric and left upper quadrant region. No radiation. No nausea or vomiting. No diarrhea or constipation. Normal bladder movements. No fever, no chills, no chest pain, no shortness of breath, no headache, no blurred vision, no earache, no runny nose, no sore throat, no cough. She is eating okay and eating is not worsening her abdominal pain. Currently, resting comfortably and hemodynamically stable. ALLERGIES: PENICILLINS. PAST MEDICAL HISTORY: As mentioned above. PAST SURGICAL HISTORY: , conization of cervix, tonsillectomy. MEDICATIONS: The patient is on levothyroxine 75 mcg p.o. daily. FAMILY HISTORY: Significant for mother has endometriosis, maternal grandfather has heart disorder, maternal grandmother has Alzheimer's disease. SOCIAL HISTORY: Smokes 1 pack a day for 21 years. No alcohol use. No drug use. REVIEW OF SYSTEMS: As per HPI. Rest of review of systems is negative. PHYSICAL EXAMINATION: GENERAL: The patient is obese, not in acute distress. VITAL SIGNS: Temperature 36.7, pulse 66, respiratory rate 18, blood pressure 138/53, oxygen 98% on room air. HEENT: Pupils equal, round and reactive to light. Oral mucosa moist. NECK: No JVD, no neck masses. CARDIOVASCULAR: S1 and S2 heard. Regular rate and rhythm. No murmur, no gallop. RESPIRATORY SYSTEM: Normal AP diameter. No accessory muscle use. No wheezing, no crackles. ABDOMEN: Soft, bowel sounds present. Mild tenderness in the left upper quadrant region. No guarding, no rigidity, no distention. CENTRAL NERVOUS SYSTEM: Cranial nerves II-XII grossly intact, nonfocal. EXTREMITIES: No edema, no erythema. LABORATORY DATA: WBC 9.3, hemoglobin 13.1, hematocrit 38.7, platelets 290. Sodium 137, potassium 3.4, chloride 105, bicarbonate 25, BUN 7, creatinine 0.5, serum glucose 93, calcium 8.8, total bilirubin 0.3, AST 12, ALT 9, alkaline phosphatase 75. Lipase 778. HCG qualitative negative. Urinalysis positive for trace leukocyte esterase and +1 bacteria. COVID negative. IMAGING DATA: CT of abdomen and pelvis preliminary report shows mild acute pancreatitis involving of the pancreatic tail. No parenchymal necrosis, obstructing stone or fluid collection. ASSESSMENT AND PLAN: This is a 41-year-old female who presents with abdominal pain, found to have acute pancreatitis. 1. Abdominal pain: Acute pancreatitis. Mild elevation of lipase, etiology unclear. No alcohol history and no gallstones on the CAT scan. The patient says she is tolerating diet. So we will place her on clear liquid diet. Will place on IV Ringer's lactate 200 mL per hour and IV Dilaudid p.r.n.zofran p.r.n., IV Pepcid 20 b.i.d. GI consult in a.m. Monitor in the medical floor. 2. Possible urinary tract infection: Will place on Rocephin. Follow the cultures. 3. Hypothyroidism: Continue Synthroid. 4. Obesity: Needs counseling. 5. Deep venous thrombosis prophylaxis: Lovenox. DISPOSITION: Closely monitor in the medical floor. Expect to discharge home and follow with family doctor. Job ID: [id number] [facility]
[2021-12-18] MEDS: HYDROmorphone INJ 0.5 MG/0.5 ML SYR IV PRN ×2 (07:51→18:36)
[2021-12-18] MEDS: FAMOTIDINE 20 MG in SYRINGE 3 ML IV SCH ×2 (08:57→20:54)
--- NOTE | 2021-12-18 14:20 | Gastrointestinal Consultation ---
Date of Consultation December 18, 2021 Assessment & Plan (1) Acute pancreatitis: LR at 200/hr. Clear liquids later today - or tomorrow if improving. Recheck lipase, LFTs, CBC, CMP tomorrow. Plan for OP EUS in 6 wks. Our office will contact her to arrange. Supervising Physician Co-Signing Physician Notes Attending attestation I have seen, examined this patient, and agree with the findings and above by our mid-level provider LAURITA Fajardo, with the following additions: - Doing well, idiopathic, possibly gallstone pancreatitis - advance diet to clears - outpt EUS in 4-6 wks History of Present Illness Reason for Consultation: pancreatitis Requesting Physician: Dr. Patel Attending Physician: James Rodriguez MD History of Present Illness Ms. Shobha Mota is a 41 yr old feamale pt w/o a PCP. She presented to the ED yesterday for diffuse abdominal pain of 2 days duration. She has not had fevers, but did have some sweats with the pain. + nausea, no vomiting. On arrival CT, with acute, mild pancreatitis and lipase elevated to 778(yesterday)->331 today. LFTs have been normal. No leukocytosis or tachycardia. Creatinine is normal. Hemoglobin was 13 yesterday and is 11.6 today. Regarding the cause of the pancreatitis, she denies any hx of increased alcohol intake. No new medications. No prior biliary colic type symptoms. No family hx of pancreatitis or other autoimmune or pancreas issues. She is a smoker. Allergies Allergy/AdvReac Type Severity Reaction Status Date / Time Penicillins Allergy Unknown Rash Verified 12/17/21 21:11 Home Medications Medication Instructions Recorded Confirmed Type levothyroxine 75 mcg tablet 75 mcg PO QAM 08/03/20 12/17/21 History Patient History Medical History Eczema Thyroid condition Surgical History No significant past surgical history Social History Smoking Status: Current every day smoker Tobacco Type: Cigarettes Cigarettes Per Day: 1 pack; Second Hand Exposure: No; Do You Dip or Chew Tobacco: No; Tobacco Cessation Education Requested by Patient: No Hx Alcohol Use: No Hx Substance Use: No Preferred Language: Azeri Communication Ability: Effective Market Research Coordinator Required: No Beliefs That Will Affect Care: None marital status: Current Living Situation: Family Current Living Situation Comment: pt is single mother at home with children Other Information That Helps Us Care for You: No Feels Safe at Home: Yes Safety Concerns: Feels Safe At This Time Assistive Devices: None Assistive Devices Comment: pt wears glasses while driving; glasses at home Review of Systems Review of Systems: ROS: Gen: Denies weakness, fevers, weight loss Eyes: No eye redness, or pain, no recent vision changes Resp: No SOB, no cough Cardio: No palpitations/irregular beats, no chest pain GI: As per HPI, otherwise negative : Denies pain on urination Skin: No jaundice, itching or new rashes Physical Exam Constitutional: well developed and cooperative Eyes: PERRL, conjunctivae normal, anicteric sclerae ENMT: external ear and nose normal, oropharynx normal Neck: trachea midline, no thyromegaly Respiratory: normal respiratory effort, lungs clear to auscultation Cardiovascular: RRR, no murmur, no edema Gastrointestinal (Abdomen): Inspection/Auscultation: abdomen normal to inspe ction and normal bowel sounds; abdomen not distended and no abdominal edema Percussion/Palpation: + abdomen tender (Moderate left sided and LLQ tenderness. No signs of acute abdomen.) and abdomen soft; no guarding and abdomen not rigid Skin: no rashes, warm and dry normal turgor Neurologic: PERRL, EOMI, accommodation nl, no face palsy, no dysarthria awake; not confused Psychiatric: A+Ox3, euthymic affect Lymphatic: no cervical or axillary lymphadenopathy Results & Data ([facility]) Vital Signs (Past 12 Hours) Vital Signs Temp Pulse Resp BP Pulse Ox 12/18/21 02:35 36.5 C 72 16 127/74 96 Laboratory Results WBC 7.6, Hb 11.6, Hct 38, Plts 263, Na 138, K 3.5, Cl108, CO2 26, BUN 4, Cr 0.46, glucose 99 Diagnostic Findings CTAP w IV contrast on 12/17/21: 1. Mild acute interstitial edematous pancreatitis. 2. No bowel obstruction or bowel wall thickening. Normal appendix. 3. Mild colonic diverticulosis. (1) Acute pancreatitis Acute pancreatitis complication: unspecified Pancreatitis type: unspecified pancreatitis type Qualified Code(s): K85.90 - Acute pancreatitis without necrosis or infection, unspecified
--- NOTE | 2021-12-18 15:47 | Hospitalist Progress Note ---
Date of Service December 18, 2021 Assessment & Plan (1) Acute pancreatitis: Plan: This is a 41-year-old female with past medical history significant for hypothyroidism, polycystic ovaries, chronic rhinitis, tobacco use disorder. Presented with abdominal pain and found to have acute pancreatitis. CT ABD/pelvis: Mild acute interstitial edematous pancreatitis. Lipase 778 --> 351 Patient improving Continue IVF and clear liquid diet for today GI consulted, recommending outpatient EUS in 6 weeks (2) Abnormal urinalysis: Plan: UA suggest possible UTI, urine culture pinpoint growth Continue IV ceftriaxone (day 1) pending final urine culture (3) Hypothyroidism: Plan: Continue levothyroxine (4) DVT prophylaxis: Plan: SQ Lovenox Dispo: Likely discharge home the next 1 to 2 days. Admission and Anticipated Discharge Date Admission Date: December 18, 2021 Supervising Physician Co-Signing Physician Notes 41-year-old lady with PMH of hypothyroidism and polycystic ovaries is being managed for acute pancreatitis, reports improving pain, on clear liquid diet, advance as tolerated. Upon examination: GENERAL: Alert and oriented x3. NAD, on RA. HEENT: No pallor, no icterus. Pupils equal, round and reactive to light. Oral mucosa moist. NECK: No JVD, no neck masses. HEART: S1 and S2 heard. Regular rate and rhythm. No murmur, no gallop. RESPIRATORY SYSTEM: Normal AP diameter. No accessory muscle use. No wheezing, no crackles. ABDOMEN: Soft, bowel sounds present, +left side, no distention. CENTRAL NERVOUS SYSTEM: No facial droop. Speech is clear. Obeys simple commands. Moves extremities. EXTREMITIES: No edema, no erythema seen. I have seen and examined the patient and have discussed the case with the provider above. I agree with the assessment and plan as stated. Subjective Patient seen and examined. Follow-up for pancreatitis, possible UTI. Patient reports some residual left-sided abdominal pain however much improved from presentation. No nausea or vomiting. Denies chest pain or shortness of breath. Review of Systems Review of Systems: ROS per HPI, all other systems reviewed and negative Physical Exam Constitutional: WD/WN, vitals as above Respiratory: normal respiratory effort, lungs clear to auscultation Cardiovascular: Rate/Rhythm: regular rate and regular rhythm Vessels: normal peripheral pulses Extremities: no edema Gastrointestinal (Abdomen): Percussion/Palpation: + abdomen tender (Left- sided) and abdomen soft Skin: no rashes, warm and dry Neurologic: no focal motor deficits Psychiatric: A+Ox3, euthymic affect Results & Data Results & Data ([facility]) Vital Signs (Past 12 Hours) Vital Signs Temp Pulse Resp BP Pulse Ox 12/18/21 15:19 36.5 C 74 16 111/71 98 Laboratory Results Short CBC 12/17/21 12/18/21 Range/Units 21:47 06:55 WBC 9.38 7.65 (4.8-10.8) K/uL Hgb 13.1 11.6 L (12.0-16.0) g/dL Hct 38.7 35.1 L (37-47) % Plt Count 290 263 (130-400) K/uL BMP 12/17/21 12/18/21 21:47 06:55 Sodium 137 138 Potassium 3.4 L 3.5 Chloride 105 108 H Carbon Dioxide 25 26 BUN 7 4 L Creatinine 0.52 L 0.46 L Glucose 93 94 Calcium 8.8 8.4 L Liver Function 12/17/21 Range/Units 21:47 Total Bilirubin 0.3 (0.2-1.0) mg/dl AST 12 L (13-39) U/L ALT 9 (7-52) U/L Alkaline Phosphatase 75 (34-104) U/L Albumin 3.8 (3.4-5.0) gm/dl Urine 12/17/21 Range/Units 21:56 Urine Color Dark Yellow Urine Appearance Cloudy A (Clear) Urine pH 5.5 (4.5-7.5) Ur Specific [place] 1.033 H (1.000-1.030) Urine Protein 1+ H (Negative) Urine Glucose (UA) Negative (Negative) (1) Acute pancreatitis Acute pancreatitis complication: unspecified Pancreatitis type: unspecified pancreatitis type Qualified Code(s): K85.90 - Acute pancreatitis without necrosis or infection, unspecified
[2021-12-19] MEDS: LACTATED RINGER'S 1,000 ML IV SCH ×4 (00:05→09:55)
[2021-12-19] MEDS: cefTRIAXone SODIUM 2,000 MG in DEXTROSE 5% 50 ML IV SCH (03:20)
[2021-12-19] MEDS: ENOXAPARIN INJ 40 MG/0.4 ML SYR SQ SCH (05:58)
[2021-12-19] MEDS: LEVOTHYROXINE SODIUM 75 MCG TABLET PO SCH (05:59)
[2021-12-19 07:29] LABS: Hematocrit (blood only) 35.5 % (37-47); Hemoglobin 11.6 g/dL (12.0-16.0); Mean Corpuscular Hemoglobin 31.8 pg (25-34); Mean Corpuscular Hgb Conc 32.7 g/dL (32-36); Mean Corpuscular Volume 97.3 fL (80-100); Mean Platelet Volume 9.8 fL (7.4-10.4); Platelet Count 279 K/uL (130-400); RDW Coefficient of Variation 13.4 % (11.5-14.5); RDW Standard Deviation 48.2 fL (36.4-46.3); Red Blood Count 3.65 M/uL (4.2-5.4); White Blood Count 6.61 K/uL (4.8-10.8)
[2021-12-19 07:56] LABS: Albumin Globulin Ratio 1.2 (0.9-2); Albumin Level 3.4 gm/dl (3.4-5.0); BUN Creatinine Ratio 6.1 (10-20); Bilirubin,Total 0.2 mg/dl (0.2-1.0); Calcium 8.7 mg/dl (8.5-10.1); Creatinine Clr Calc Pharmacy 188.4 ml/min; Est GFR (African American) 140.3 ml/min; Globulin 2.8 gm/dl (2.5-4.0); Potassium 3.5 mmol/L (3.5-5.1); Total Protein 6.2 gm/dl (6.0-8.3)
[2021-12-19] MEDS: NICOTINE 21 MG/24 HR TDSY TD SCH (09:54)
[2021-12-19] MEDS: FAMOTIDINE 20 MG in SYRINGE 3 ML IV SCH (09:55)
--- NOTE | 2021-12-19 10:48 | Gastroenterology Progress Note ---
Date of Service December 19, 2021 Assessment & Plan (1) Acute pancreatitis: Plan: Resolving Low-fat diet Plan for outpatient EUS in 6 weeks, our office will contact her to arrange. Advised to stop smoking. We will check FLP with triglycerides as an outpatient. No GI contraindication to discharge today. Admission and Anticipated Discharge Date Admission Date: December 18, 2021 Supervising Physician Co-Signing Physician Notes Attending attestation I have seen, examined this patient, and agree with the findings and above by our mid-level provider LAURITA Fajardo, with the following additions: - Doing well, assymptomatic - outpt EUS in 4-6 wks Subjective 41, female, admitted December 18 for abdomen pain, CT elevated lipase consistent with acute uncomplicated pancreatitis. Today able to eat a regular diet for breakfast without increasing pain though she did need to use narcotics 1 time in the last 24 hours for pain (last evening). Appears well, currently no discomfort no nausea. Received hydration, hemoglobin 13->11. Creatinine 0.49. Lipase 100. LFTs were normal on arrival. Review of Systems Review of Systems: ROS: Gen: Denies weakness, fevers, weight loss Eyes: No eye redness, or pain, no recent vision changes Resp: No SOB, no cough Cardio: No palpitations/irregular beats, no chest pain GI: As per HPI, otherwise (-) : Denies pain on urination Skin: No jaundice, itching or new rashes Physical Exam Constitutional: well developed and cooperative Eyes: PERRL, conjunctivae normal, anicteric sclerae Respiratory: normal respiratory effort, lungs clear to auscultation Cardiovascular: RRR, no murmur, no edema Gastrointestinal (Abdomen): normal bowel sounds, soft, nontender, no hepatosplenomegaly Skin: no rashes, warm and dry normal turgor and + pallor Neurologic: PERRL, EOMI, accommodation nl, no face palsy, no dysarthria awake; not confused Psychiatric: A+Ox3, euthymic affect Orientation: cooperative Results & Data ([facility]) Vital Signs (Past 12 Hours) Vital Signs Temp Pulse Resp BP Pulse Ox 12/19/21 07:17 36.5 C 68 16 120/65 97 Laboratory Results WBC 6, Hb 11.6, HCT 35, PLT S279, NA 139, K3.5, CL 108, CO2 25, BUN 3, CR 0.49, glucose 84. Diagnostic Findings CTAP with IV contrast 12/18/2021: 1. Mild acute interstitial edematous pancreatitis. 2. No bowel obstruction or bowel wall thickening. Normal appendix. 3. Mild colonic diverticulosis. (1) Acute pancreatitis Acute pancreatitis complication: unspecified Pancreatitis type: unspecified pancreatitis type Qualified Code(s): K85.90 - Acute pancreatitis without necrosis or infection, unspecified
--- NOTE | 2021-12-19 17:15 | Discharge Summary ---
Date of Service December 19, 2021 Admission HPI Per Admitting Provider This is a 41-year-old female with past medical history significant for hypothyroidism, polycystic ovaries, chronic rhinitis, tobacco use disorder. Presents with abdominal pain and found to have acute pancreatitis. The patient says the pain is going on for the last 2 to 3 days, 5/10 in severity, no radiation. The pain is worst in the epigastric and left upper quadrant region. No radiation. No nausea or vomiting. No diarrhea or constipation. Normal bladder movements. No fever, no chills, no chest pain, no shortness of breath, no headache, no blurred vision, no earache, no runny nose, no sore throat, no cough. She is eating okay and eating is not worsening her abdominal pain. Currently, resting comfortably and hemodynamically stable. Admission Exam Per Admitting Provider GENERAL: The patient is obese, not in acute distress. VITAL SIGNS: Temperature 36.7, pulse 66, respiratory rate 18, blood pressure 138/53, oxygen 98% on room air. HEENT: Pupils equal, round and reactive to light. Oral mucosa moist. NECK: No JVD, no neck masses. CARDIOVASCULAR: S1 and S2 heard. Regular rate and rhythm. No murmur, no gallop. RESPIRATORY SYSTEM: Normal AP diameter. No accessory muscle use. No wheezing, no crackles. ABDOMEN: Soft, bowel sounds present. Mild tenderness in the left upper quadrant region. No guarding, no rigidity, no distention. CENTRAL NERVOUS SYSTEM: Cranial nerves II-XII grossly intact, nonfocal. EXTREMITIES: No edema, no erythema. Principal Diagnosis Pancreatitis Discharge Exam Constitutional WD/WN, vitals as above Respiratory normal respiratory effort, lungs clear to auscultation Cardiovascular Rate/Rhythm: regular rate and regular rhythm Vessels: normal peripheral pulses Extremities: no edema Gastrointestinal (Abdomen) Percussion/Palpation: abdomen soft; abdomen nontender Skin no rashes, warm and dry Neurologic no focal motor deficits Psychiatric A+Ox3, euthymic affect Discharge Data Allergies Allergy/AdvReac Type Severity Reaction Status Date / Time Penicillins Allergy Unknown Rash Verified 12/17/21 21:11 Consultations 12/18/21 08:00 Consult Gastroenterology Routine Ordered Studies Laboratory Results WBC 6.61 K/uL (4.8-10.8) 12/19/21 06:56 RBC 3.65 M/uL (4.2-5.4) L 12/19/21 06:56 Hgb 11.6 g/dL (12.0-16.0) L 12/19/21 06:56 Hct 35.5 % (37-47) L 12/19/21 06:56 MCV 97.3 fL (80-100) 12/19/21 06:56 MCH 31.8 pg (25-34) 12/19/21 06:56 MCHC 32.7 g/dL (32-36) 12/19/21 06:56 RDW Std Deviation 48.2 fL (36.4-46.3) H 12/19/21 06:56 RDW Coeff of Valeriy 13.4 % (11.5-14.5) 12/19/21 06:56 Plt Count 279 K/uL (130-400) 12/19/21 06:56 MPV 9.8 fL (7.4-10.4) 12/19/21 06:56 Immature Gran % (Auto) 0.1 % 12/18/21 06:55 Neut % (Auto) 70.9 % 12/18/21 06:55 Lymph % (Auto) 20.8 % 12/18/21 06:55 Wharton % (Auto) 7.1 % 12/18/21 06:55 Eos % (Auto) 1.0 % 12/18/21 06:55 Baso % (Auto) 0.1 % 12/18/21 06:55 Neut # (Auto) 5.42 K/uL (1.4-6.5) 12/18/21 06:55 Lymph # (Auto) 1.59 K/uL (1.2-3.4) 12/18/21 06:55 Wharton # (Auto) 0.54 K/uL (0.11-0.59) 12/18/21 06:55 Eos # (Auto) 0.08 K/uL (0-0.5) 12/18/21 06:55 Baso # (Auto) 0.01 K/uL (0-0.2) 12/18/21 06:55 Immature Gran # (Auto) 0.01 K/uL (0.00-0.02) 12/18/21 06:55 Sodium 139 mmol/L (136-145) 12/19/21 06:56 Potassium 3.5 mmol/L (3.5-5.1) 12/19/21 06:56 Chloride 108 mmol/L (98-107) H 12/19/21 06:56 Carbon Dioxide 25 mmol/L (21-32) 12/19/21 06:56 Anion Gap 6 (3-11) 12/19/21 06:56 BUN 3 mg/dl (6-23) L 12/19/21 06:56 Creatinine 0.49 mg/dl (0.6-1.2) L 12/19/21 06:56 Est Cr Clr Drug Dosing 188.4 ml/min 12/19/21 06:56 Est GFR ( Amer) 140.3 ml/min 12/19/21 06:56 Est GFR (Non-Af Amer) 121.0 ml/min 12/19/21 06:56 BUN/Creatinine Ratio 6.1 (10-20) L 12/19/21 06:56 Glucose 84 mg/dl (70-99(Fasting)) 12/19/21 06:56 Calcium 8.7 mg/dl (8.5-10.1) 12/19/21 06:56 Magnesium 2.0 mg/dl (1.7-2.4) 12/18/21 06:55 Total Bilirubin 0.2 mg/dl (0.2-1.0) 12/19/21 06:56 AST 11 U/L (13-39) L 12/19/21 06:56 ALT 8 U/L (7-52) 12/19/21 06:56 Alkaline Phosphatase 65 U/L (34-104) 12/19/21 06:56 Total Protein 6.2 gm/dl (6.0-8.3) 12/19/21 06:56 Albumin 3.4 gm/dl (3.4-5.0) 12/19/21 06:56 Globulin 2.8 gm/dl (2.5-4.0) 12/19/21 06:56 Albumin/Globulin Ratio 1.2 (0.9-2) 12/19/21 06:56 Lipase 104 U/L (11-82) H 12/19/21 06:56 HCG, Qual Negative (Negative) 12/17/21 21:47 Urine Color Dark Yellow 12/17/21 21:56 Urine Appearance Cloudy (Clear) A 02/21/22 21:56 Urine pH 5.5 (4.5-7.5) 12/17/21 21:56 Ur Specific Lincoln 1.033 (1.000-1.030) H 12/17/21 21:56 Urine Protein 1+ (Negative) H 12/17/21 21:56 Urine Glucose (UA) Negative (Negative) 12/17/21 21:56 Urine Ketones Trace (Negative) H 12/17/21 21:56 Urine Blood 3+ (Negative) H 12/17/21 21:56 Urine Nitrite Negative (Negative) 12/17/21 21:56 Urine Bilirubin Negative (Negative) 12/17/21 21:56 Urine Urobilinogen Negative (Negative) 12/17/21 21:56 Ur Leukocyte Esterase Trace (Negative) H 12/17/21 21:56 Urine WBC (Auto) 10-30 /hpf (0-5) H 12/17/21 21:56 Urine RBC (Auto) >30 /hpf (0-4) H 12/17/21 21:56 U Hyaline Cast (Auto) 10-30 /lpf (0-5) H 12/17/21 21:56 U Epithel Cells (Auto) >30 /lpf (0-5) H 12/17/21 21:56 Urine Bacteria (Auto) 1+ (Negative) H 12/17/21 21:56 Ur Renal Epithelial Cell 0-5 /lpf (0-5) 12/17/21 21:56 Urine Yeast Not Reportable 12/17/21 21:56 SARS-CoV-2, RNA, NAAT NEGATIVE (NEGATIVE) 12/18/21 00:18 Impressions Abdomen/Pelvis CT 12/17/21 21:[address] WITH IV CONTRAST CT DOSE: 1268.90 mGy.cm HISTORY: Acute left lower quadrant abdominal pain with nausea luq abd pain TECHNIQUE: Multiaxial CT images of the abdomen and pelvis were performed followi ng the IV administration of 95 cc of Optiray, A dose lowering technique was utilized adhering to the principles of ALARA. COMPARISON STUDY: Pelvic ultrasound 04/01/2012 FINDINGS: The imaged inferior lung bases appear unremarkable. Calcified granuloma of the basal right lower lobe. Clear lung bases. No pneumatosis or pneumoperitoneum. Scattered calcifications are noted within the spleen. Unremar kable right adrenal gland, gallbladder and liver. There is patency of the hepatic and portal veins. There is a 1.9 x 1.4 cm left adrenal gland nodule with Hounsfield of 7 suggestive of an adenoma. There is mild interstitial and peripancreatic edema involving the distal pancreatic body and tail with edema and trace free fluid extending along the splenic flexure. No pancreatic ductal dilation, mass or stone. No pancreatic necrosis. Unremarkable kidneys. No hydronephrosis. Partial distention of the urinary bladder. The uterus and adnexa are unremarkable. No abdominal aortic aneurysm. No adenopathy. No bowel obstruction or bowel wall thickening. Colonic diverticulosis. Normal appendix. Tiny fat filled periumbilical hernia. No acute fracture. Degenerative changes of the lower lumbar spine. IMPRESSION: 1. Mild acute interstitial edematous pancreatitis. 2. No bowel obstruction or bowel wall thickening. Normal appendix. 3. Mild colonic diverticulosis. ACT 112: Negative or not required by law. The above report was generated using voice recognition software. It may contain grammatical, syntax or spelling errors. Electronically signed by: Luisito Bill M.D. 12/18/2021 6:58 AM Hospital Course (1) Acute pancreatitis: This is a 41-year-old female with past medical history significant for hyp othyroidism, polycystic ovaries, chronic rhinitis, tobacco use disorder. Presented with abdominal pain and found to have acute pancreatitis. CT ABD/pelvis: Mild acute interstitial edematous pancreatitis. Lipase 778 --> 351 --> 104 Treated with bowel rest, IVF, pain and nausea control Patient tolerating regular diet Etiology of pancreatitis unclear, no gallstones noted on CT, patient denies alc ohol use, no culprit medications identified GI consulted, recommending outpatient EUS in 6 weeks (2) Abnormal urinalysis: UA suggestive possible UTI, culture negative. Antibiotics discontinued (3) Hypothyroidism: Continue levothyroxine Total Time Total Time Spent Total Time Spent (In Minutes): 35 Discharge Plan Discharge Items Patient Disposition: Home - Self-Care Reason For Visit: Abdominal Pain Discharge Diagnosis: Pancreatitis Activity: As commented below Activity Comment: as tolerated, you may return to work on 12/20/21 Non-emergency contact: Primary Care Provider Call non-emergency contact if: you have any medication questions, your symptoms worsen, your pain is not controlled and you have a fever Follow-up/Referrals: Byron Parrish MD [Physician] - (Office will call you to schedule endoscopy) Sharyn Ramos DO [Outside Practitioners] - (Date & Time 12/24/2021 11:10 AM Provider Arleen De La Cruz DO [facility] ) Diet: Low Fat Addtl Attending Provider Instructions: You came to the hospital for evaluation of abdominal pain. You were diagnosed with pancreatitis (inflammation of the pancreas). You were treated with IV fluids and bowel rest and improved. You were seen by the GI doctor who is recommending a endoscopy procedure - the office will call to get this scheduled. Follow a low fat diet. It was a pleasure taking care of you. If you need to reach a [facility], please call [phone]. LAURITA España Pending Studies at Discharge: No Stand-Alone Forms: My [employer], Smoking Cessation Medications and DC Order Prescriptions: New nicotine [Nicoderm CQ] 21 mg/24 hr Patch 24 Hour 21 mg transdermal DAILY Qty: 14 RF: 0 Continued levothyroxine 75 mcg tablet 75 mcg PO QAM RF: 0 Discharge Orders: Discharge Order (Routine); Ordered 12/19/21 Ordered By: Yesenia De La Paz/Other Patient Handouts: Understanding Pancreatitis, ED Diet, Low Fat Admission Data Admit Date/Time: 12/18/21 01:35 Attending Provider: James Rodriguez Admit Provider: Italo Patel Primary Care Provider: PCP,NO Other Providers: Italo Patel ; Terry Hopper ; Denise Hendricks ; Tana Varma ; Dominique Rossi ; Byron Parrish ; Ashleigh Menchaca ; Zaid Cottrell ; Yang Mendenhall ; Pat Guerrero ; Rona Lackey ; Romy Pascual ; Abbey Dunne ; Lorelei Meyer Other Interventions: Discharge Summary Assessment (RN) Last Done: 12/19/21 14:55 Supervising Physician Co-Signing Physician Notes 41-year-old lady with PMH of hypothyroidism and polycystic ovaries is being managed for acute pancreatitis, reports resolution of pain, tolerating diet well. GI evaluated the patient and recommends outpatient EUS in 6 weeks. No etiology identified for pancreatitis. Upon examination: GENERAL: Alert and oriented x3. NAD, on RA. HEENT: No pallor, no icterus. Pupils equal, round and reactive to light. Oral mucosa moist. NECK: No JVD, no neck masses. HEART: S1 and S2 heard. Regular rate and rhythm. No murmur, no gallop. RESPIRATORY SYSTEM: Normal AP diameter. No accessory muscle use. No wheezing, no crackles. ABDOMEN: Soft, bowel sounds present, nontender, no distention. CENTRAL NERVOUS SYSTEM: No facial droop. Speech is clear. Obeys simple commands. Moves extremities. EXTREMITIES: No edema, no erythema seen. I have seen and examined the patient and have discussed the case with the provider above. I agree with the assessment and plan as stated.
== END 2021-12-19 16:19 | disposition home or self-care (01) | DRG 440 ==
LOC: ED 20:38 → SUATTDRO 12-18 01:35 → 3N 12-18 01:35